=== PATIENT | female | born 1955 | race Caucasian/White ===

== ENCOUNTER 2017-12-13 11:05 | Emergency (ER) | payer MEDICAID, SELFPAY ==
[2017-12-13 11:07] VITALS: BP 135/70; PULSE 74; RESP 16; TEMP 36.5; O2SAT 98
--- NOTE | 2017-12-13 11:11 | HMH.EDBACK ---
ED Disposition Clinical Impression: Sacro-iliac pain, Sciatica Disposition: Home, Self-Care Condition on Discharge: Fair Additional Instructions: 1- rest. 2- robaxin. 3- warm compresses. 4- see pcp for an MRI in AM. 5- stop smoking. 6- return for any new sx. Prescriptions: Methocarbamol [Robaxin 500mg Tab] 500 mg PO Q8HP PRN #30 tab PRN Reason: Moderate Pain - Critical Care Critical Care Time: No Attestation: On , the high probability of a clinically significant, sudden or life threatening deterioration of the following system(s) required my full and direct attention, intervention and personal management. The time I documented below is in addition to time spent performing reported procedures but includes the following listed in this critical care notation. Medical Decision Making - Medical Records Medical records reviewed: Yes: I reviewed the patient's medical records. Vital Signs: 12/13/17 11:07 Temperature 97.7 F Temperature Source Oral Pulse Rate [Right Radial] 74 Respiratory Rate 16 Blood Pressure [Right Arm] 135/70 Blood Pressure Mean [Right Arm] 91 Blood Pressure Source [Right Arm] Automatic Cuff Blood Pressure Position [Right Arm] Sitting 02 Sat by Pulse Oximetry 98 Oxygen Delivery Method Room Air Orders (Tests/Meds): ED MEDICATIONS Discontinued Medications Generic Name Dose Route Start Last Admin Trade Name Freq PRN Reason Stop Dose Admin Acetaminophen 650 mg 12/13/17 11:22 12/13/17 11:26 Acetaminophen 325mg Tab PO 12/13/17 11:23 650 mg ONCE ONE Administration ORDERS Category Date Time Status XR femur RT 2V Stat Exams 12/13/17 12:06 Ordered XR hip RT 2-3V w/pelvis Stat Exams 12/13/17 11:15 Taken - Radiology Data #1 Image(s): Hip, Femur Image Reviewed: Yes I reviewed the patient's radiology image Preliminary Findings: Normal/NAD - Deepak Inquiry Pt receiving controlled substance: No Deepak was queried for this patient: No Medical Decision Making Narrative: The patient initially refused pain injection requested Tylenol. Upon the family arrival they informed me that she has become been experiencing lower back pain radiating to the right lower extremity for some time and she is using Aleve. Reexamine the patient and she had no sacral tenderness no femur tenderness and negative pain with passive range of motion. She only starts hurting when she puts weight on the right leg. X-rays had no abnormal bony structure. Advised the family for rest no weightbearing on follow-up with a manipulative chiropractor for sacroiliac joint to justment. If not better she will need to obtain an as an MRI of the lumbar spine to rule out sciatica by her primary care physician. [facility] History I have reviewed the patient's past medical history: Yes ROS Obtained: Yes All systems reviewed & no additional complaints Physical Exam - General General appearance: alert, in no apparent distress - Head Head exam: atraumatic, normocephalic, normal inspection - Eye Eye exam: Present: normal appearance, PERRL, EOMI - ENT ENT exam: Present: normal exam, normal oropharynx, mucous membranes moist, TM's normal bilaterally, normal external ear exam - Neck Neck exam: Present: normal inspection, full ROM, trachea midline. Absent: meningismus, lymphadenopathy - Chest Chest inspection: Present: normal inspection, symmetric chest wall rise. Absent: tenderness - Respiratory Respiratory exam: Present: normal lung sounds bilaterally. Absent: respiratory distress - Cardiovascular Cardiovascular exam: Present: regular rate, normal rhythm. Absent: JVD - Abdominal Exam Abdominal exam: Present: soft, normal bowel sounds. Absent: distention, tenderness, guarding - Extremities Exam Extremities exam: Present: normal inspection, full ROM, normal capillary refill. Absent: calf tenderness - Back Exam Back exam: Present: normal inspection, tenderness, other (S
--- NOTE | 2017-12-13 11:14 | ED_ITS ---
ED Disposition Clinical Impression: Sacro-iliac pain, Sciatica Disposition: Home, Self-Care Condition on Discharge: Fair Additional Instructions: 1- rest. 2- robaxin. 3- warm compresses. 4- see pcp for an MRI in AM. 5- stop smoking. 6- return for any new sx. Prescriptions: Methocarbamol [Robaxin 500mg Tab] 500 mg PO Q8HP PRN #30 tab PRN Reason: Moderate Pain - Critical Care Critical Care Time: No Attestation: On , the high probability of a clinically significant, sudden or life threatening deterioration of the following system(s) required my full and direct attention, intervention and personal management. The time I documented below is in addition to time spent performing reported procedures but includes the following listed in this critical care notation. Medical Decision Making - Medical Records Medical records reviewed: Yes: I reviewed the patient's medical records. Vital Signs: 12/13/17 11:07 Temperature 97.7 F Temperature Source Oral Pulse Rate [Right Radial] 74 Respiratory Rate 16 Blood Pressure [Right Arm] 135/70 Blood Pressure Mean [Right Arm] 91 Blood Pressure Source [Right Arm] Automatic Cuff Blood Pressure Position [Right Arm] Sitting 02 Sat by Pulse Oximetry 98 Oxygen Delivery Method Room Air Orders (Tests/Meds): ED MEDICATIONS Discontinued Medications Generic Name Dose Route Start Last Admin Trade Name Freq PRN Reason Stop Dose Admin Acetaminophen 650 mg 12/13/17 11:22 12/13/17 11:26 Acetaminophen 325mg Tab PO 12/13/17 11:23 650 mg ONCE ONE Administration ORDERS Category Date Time Status XR femur RT 2V Stat Exams 12/13/17 12:06 Ordered XR hip RT 2-3V w/pelvis Stat Exams 12/13/17 11:15 Taken - Radiology Data #1 Image(s): Hip, Femur Image Reviewed: Yes I reviewed the patient's radiology image Preliminary Findings: Normal/NAD - Deepak Inquiry Pt receiving controlled substance: No Deepak was queried for this patient: No Medical Decision Making Narrative: The patient initially refused pain injection requested Tylenol. Upon the family arrival they informed me that she has become been experiencing lower back pain radiating to the right lower extremity for some time and she is using Aleve. Reexamine the patient and she had no sacral tenderness no femur tenderness and negative pain with passive range of motion. She only starts hurting when she puts weight on the right leg. X-rays had no abnormal bony structure. Advised the family for rest no weightbearing on follow-up with a manipulative chiropractor for sacroiliac joint to justment. If not better she will need to obtain an as an MRI of the lumbar spine to rule out sciatica by her primary care physician. [facility] History I have reviewed the patient's past medical history: Yes ROS Obtained: Yes All systems reviewed & no additional complaints Physical Exam - General General appearance: alert, in no apparent distress - Head Head exam: atraumatic, normocephalic, normal inspection - Eye Eye exam: Present: normal appearance, PERRL, EOMI - ENT ENT exam: Present: normal exam, normal oropharynx, mucous membranes moist, TM's normal bilaterally, normal external ear exam - Neck Neck exam: Present: normal inspection, full ROM, trache
--- NOTE | 2017-12-13 11:15 | XR_ITS ---
XR hip RT 2-3V w/pelvis Ordering Physician: Ron Solomon MD Patient Age: 62 years: Female HISTORY: ITS.REASON: Right hip pain shoots down right leg TECHNIQUE: Right hip AP and frog-leg view along with AP pelvis COMPARISON : No previous studies FINDINGS Right hip, intact with no fracture nor dislocation evident right femoral head with normal contour right femoral neck appears intact.. The superior hip joint spaces fairly well maintained. Only scant hypertrophic ridging at superior lip of acetabulum which may reflect early degenerative change. Osseous pelvis appears intact. Sacrum appears intact superior and inferior ramus appear intact. Mild atherosclerotic calcifications throughout pelvic vessels. . Moderate stool:. Mild degenerative disc space narrowing to the left at L4/5 noted with facet arthropathy likely lower L-spine. . If significant pain or pelvis pain persist consider CT follow-up. IMPRESSION: . Right hip appears intact with no acute fracture. Perhaps scant minor degenerative changes at hips. . Mild demineralization.
--- NOTE | 2017-12-13 12:06 | XR_ITS ---
XR femur RT 2V Ordering Physician: Ron Solomon MD Patient Age: 62 years: Female HISTORY: ITS.REASON: pain TECHNIQUE: AP and lateral right femur COMPARISON :Right hip from today FINDINGS The right femur is intact with no fracture evident. Right hip included appears intact on these right femur views as well . Right knee is included with mild narrowing lateral compartment more so than medial compartment. . Question some mild focal soft tissue edema lateral and anterior to the mid right femur near the junction of proximal and middle third. This is inconsistently visualized and could be due to overlying clothing or artifact. IMPRESSION right femur intact no fracture evident.
[2017-12-13 13:17] VITALS: BP 144/94; PULSE 76; RESP 20; TEMP 37.1; O2SAT 98
== END 2017-12-13 13:19 | disposition home or self-care (01) ==
PROVIDERS: Emergency Provider Emergency Medicine; PCP Nurse Practitioner
DX: M54.31 Sciatica, right side (principal); I10 Essential (primary) hypertension; E78.5 Hyperlipidemia, unspecified; X50.1XXA Overexertion from prolonged static or awkward postures, initial encounter; Y92.013 Bedroom of single-family (private) house as the place of occurrence of the external cause
CPT/HCPCS: 73502; 73552; 96372; 99282

== ENCOUNTER → 2017-12-15 13:33 | Outpatient (CLI) | payer MEDICAID, SELFPAY ==
--- NOTE | 2017-12-15 13:51 | NVE_ITS ---
Venous Exam Indications: 729.5 Pain in limb. IMPRESSIONS 1. There is no evidence of significant Reflux. 2. No evidence of deep or superficial vein thrombosis involving the right lower extremity Right lower extremity venous duplex evaluation. Doppler flow study including spectral analysis, color and peterson scale imaging. Location: Vascular laboratory. Patient status: Outpatient. CRITICAL FINDINGS - Reported to: david - Read back and verified. - 12/15/17 - 1515 - None Incidental findings: Possible Muscle strain, tear, is noted incidentallyinthe right calf Tables: Venous flow and imaging: + +-------+ + Location Overall Flow properties + +-------+ + Right common femoral Patent Normal phasicity; spontaneous; normal augmentation; compressible + +-------+ + Right saphenofemoral junction Patent Compressible + +-------+ + Right profunda femoral Patent Compressible + +-------+ + Right femoral Patent Normal phasicity; spontaneous; normal augmentation; compressible + +-------+ + Right greater saphenous Patent Normal phasicity; spontaneous; normal augmentation; compressible + +-------+ + Right popliteal Patent Normal phasicity; spontaneous; normal augmentation; compressible + +-------+ + Right posterior tibial Patent Compressible + +-------+ + Right peroneal Patent Compressible + +-------+ + Right gastrocnemius Patent Compressible + +-------+ + Right soleal Patent Compressible + +-------+ + (Report amended ) Electronically signed by: Abelardo Qureshi [id number]
== END ==
PROVIDERS: PCP Nurse Practitioner; Visit Provider Nurse Practitioner
DX: M79.604 Pain in right leg (principal)
CPT/HCPCS: 93971

== ENCOUNTER → 2017-12-17 10:05 | Outpatient (CLI) | payer MEDICAID, SELFPAY ==
--- NOTE | 2017-12-17 10:10 | MR_ITS ---
MR hip RT wo con HISTORY: Right hip pain with right hip and groin pain ITS.REASON: RIGHT HIP PAIN ORDERING PHYSICIAN: Jeane Cooper PATIENT AGE: 62 years COMPARISON: Radiograph 12/13/2017 TECHNIQUE: Multiplanar multiecho sequences are performed without contrast FINDINGS: No fracture or dislocation is evident. There is no evidence of avascular necrosis of the femoral head. There are minor osteoarthritic changes with slight decrease in the joint space. There are subcortical cystic changes of the acetabulum anteriorly with mild bone marrow edema of the anterior aspect of the acetabulum which may be related to the mild osteoarthritis. No masses or muscular abnormalities apparent. IMPRESSION: Minor osteoarthritic changes of the right hip. There are small subcortical cysts along the anterior lip of the acetabulum with a small amount of bone marrow edema in this region suggesting mild inflammatory change
== END ==
PROVIDERS: PCP Nurse Practitioner; Visit Provider Nurse Practitioner
DX: M25.551 Pain in right hip (principal)
CPT/HCPCS: 73721

== ENCOUNTER 2018-01-19 09:30 | Outpatient (RCR) | payer MEDICAID, SELFPAY ==
--- NOTE | 2017-12-29 08:44 | HMH.PTOPEV ---
Rehab Outpatient Evaluation Rehab OP Evaluation Start: 12/29/17 08:04 Freq: Status: Active Protocol: Document 12/29/17 08:32 PHOANNA (Rec: 12/29/17 08:44 PHORNE [id number]) Electronically Signed By Singh Altamirano, PT 12/29/17 08:32 Outpatient Therapy Subjective History Subjective History Pt presents with c/o pain in right anterior thigh and posterior hip x ~ 2 wks . Pt states, I was moving a bed and I got a sharp pain and I couldn't move and I had to go to the ER. Pt had X-ray and MRI performed which was negative for fx or soft tissue injury and showed only minimal right hip OA. Pt. has PMH of HTN and HL. Chief Complaint Pain Symptom Type Ache Symptoms Relieved By Rest/Positioning Symptoms Aggravated By Sitting Prior Functional Limitations None Current Functional Limitations Walking Symptom Description Activity Dependent Level of pain today (0-10) 0 Pain scale - at its worst (0-10) 10 Lumbopelvic Eval Gait Observation General Gait Pattern Observation No Deviations/Normal Palapation tenderness right buttock tenderness Yes: min Range of Motion Lumbar Spine Active Flexion Range of 0-70 Motion (degrees) Lumbar Spine Active Extension Range of 0-25 Motion (degrees) Left Lumbar Spine Lateral Flexion Active 0-25 Range of Motion (degrees) Right Lumbar Spine Lateral Flexion 0-25 Active Range of Motion (degrees) Manual Muscle Test Bilateral Knee Extension Strength Grade 5 Normal Knee Flexion Strength Grade 5 Normal Hip Flexion Strength Grade 5 Normal Hip Abduction Strength Grade 5 Normal Hip Adduction Strength Grade 5 Normal Hip External Rotation Strength Grade 5 Normal Hip Internal Rotation Strength Grade 5 Normal Hip Extension Strength Grade 5 Normal Gluteus Cody Strength Grade 5 Normal Extensor Hallucis Longus Strength Grade 5 Normal Ankle Dorsiflexion Strength Grade 5 Normal Gastronemius/Soleus Strength Grade 5 Normal DTR Rt Patellar 2+ Lt Patellar 2+ Rt Gastroc/Soleus 2+ Lt Gastroc/Soleus 2+ Special Tests Forward Bending Test- Sitting Negative Left Negative Right Hip Scouring (Quadrant) Test Negative Left Negative Right Hip Vinay (DEREJE) Test Negative Left Negative Righ
== END 2018-01-19 09:31 | disposition home or self-care (01) ==
LOC: PT 09:30
PROVIDERS: PCP Nurse Practitioner; Visit Provider Nurse Practitioner
DX: M19.90 Unspecified osteoarthritis, unspecified site (principal)
CPT/HCPCS: 97010; 97014; 97110; G0283

== ENCOUNTER 2021-09-29 10:43 | Emergency (ER) | payer MEDICARE, MEDICAID, SELFPAY ==
[2021-09-29 11:12] VITALS: BP 139/71; PULSE 110; RESP 18; TEMP 37; O2SAT 95; BMI 20.8
--- NOTE | 2021-09-29 11:40 | HMH.EDUTC ---
[facility] [place] Disposition Clinical Impression: Bronchitis Sinusitis Qualifiers: Sinusitis location: unspecified location Chronicity: acute Recurrence: non-recurrent Qualified Code(s): J01.90 - Acute sinusitis, unspecified Otitis media Qualifiers: Otitis media type: suppurative Chronicity: acute Laterality: bilateral Recurrence: non-recurrent Spontaneous tympanic membrane rupture: without spontaneous rupture Qualified Code(s): H66.003 - Acute suppurative otitis media without spontaneous rupture of ear drum, bilateral Disposition: Home, Self-Care Condition on Discharge: Good Instructions: Middle Ear Infection, DI for Sinusitis, DI for Acute Bronchitis, How to Quit Tobacco Products Additional Instructions: Drink plenty of fluids. Take tylenol or ibuprofen for pain or fever. Take the medications as directed. Follow up with your regular doctor. GO TO THE ER FOR ANY WORSENING SYMPTOMS Quarantine until you know the results of your covid-19 test. If it is positive, the health department should call you and give you further instructions about your length of Quarantine and other things. Notify your school or workplace of your results and follow their instructions regarding return to work/school. Don't start the oral steroids until tomorrow, since you had the shot here today. The cough medication (promethazine dm) will make you drowsy, so don't drive or operate heavy machinery after taking it. I encourage you to get vaccinated for Covid-19 once you get better. Prescriptions: Promethazine/Dextromethorphan [Promethazine-Dm Syrup] 5 ml PO Q6HP PRN #240 ml PRN Reason: Cough Transmission Status: Received by [id number] Amoxicillin/Potassium Clav [Augmentin 500mg tab] 500 mg PO TID #30 tab Transmission Status: Received by [id number] methylPREDNISolone [Medrol] 4 mg PO DIRECTED 6 Days #21 packet Transmission Status: Received by [facility] guaiFENesin [Mucinex 600mg tablet] 1 - 2 tab PO BIDP PRN #30 tab PRN Reason: Congestion Transmission Status: Received by [id number] Referrals: Orestes Murry MD [Primary Care Provider] - Time of Disposition: 12:42 Medical Decision Making - Medical Records Medical records reviewed: No: I reviewed the patient's medical records. - Deepak Inquiry Pt receiving controlled substance: No Vital Signs: 09/29/21 11:12 09/29/21 12:46 Temperature 98.6 F 98.6 F Temperature Source Oral Pulse Rate 110 H Pulse Rate [Left] 110 H Respiratory Rate 18 18 Blood Pressure 139/71 Blood Pressure [Right Arm] 139/71 Blood Pressure Mean [Right Arm] 93 02 Sat by Pulse Oximetry 95 - Lab Data Lab results reviewed: Yes: I reviewed the patient's lab results. Orders (Tests/Meds): ED MEDICATIONS Discontinued Medications Generic Name Dose Route Start Last Admin Trade Name Seamus PRN Reason Stop Dose Admin Ceftriaxone Sodium 1 gm 09/29/21 11:57 09/29/21 12:14 Ceftriaxone 1gm Vial IM 09/29/21 11:58 1 gm ONCE ONE Administration Lidocaine HCl 0 ml 09/29/21 11:57 09/29/21 12:14 Lidocaine 1% 5ml Pf Vial IM 09/29/21 11:58 Not Given ONCE ONE Lidocaine HCl 2 ml 09/29/21 12:15 09/29/21 12:15 Lidocaine 1% Pf 2ml Ampule IM 09/29/21 12:16 2 ml ONCE ONE Administration Methylprednisolone Sodium Succinate 125 mg 09/29/21 11:57 09/29/21 12:13 Methylprednisolone Sod Succ 125mg Vial IM 09/29/21 11:58 125 mg ONCE ONE Administration [facility] HPI - General Stated complaint: cough, congestion, rt side pain, ear pain Time Seen by Provider: 09/29/21 11:41 Mode of Arrival: Ambulatory Source of Information: Patient Limitations: No Limitations Description of Symptoms (Recalled from Triage Doc. by RN): pt c/o a R ear ache, cough, nasal drainage, and sorenes under her R breast (pt believes she pulled a muscle.) HEENT Symptoms (Recalled from RN notes): Yes (R earache and nasal drainage) Resp Symptoms (Re
--- NOTE | 2021-09-29 11:56 | XR_ITS ---
PROCEDURE INFORMATION: Exam: XR Chest Exam date and time: 09/29/2021 11:56 AM Age: 65 years old Clinical indication: Shortness of breath; Additional info: Cough, congestion TECHNIQUE: Imaging protocol: XR of the chest. Views: 2 views. COMPARISON: No relevant prior studies available. FINDINGS: Lungs: Background emphysema. No focal airspace disease. Pleural spaces: Unremarkable. No pleural effusion. No pneumothorax. Heart/Mediastinum: Cardiomediastinal silhouette is within normal limits. Bones/joints: Unremarkable. IMPRESSION: No acute cardiopulmonary abnormality.
[2021-09-29 12:46] VITALS: BP 139/71; PULSE 110; RESP 18; TEMP 37
== END 2021-09-29 12:52 | disposition home or self-care (01) ==
PROVIDERS: Emergency Provider Nurse Practitioner Family; PCP Family Medicine
DX: U07.1 COVID-19 (principal); J20.9 Acute bronchitis, unspecified; J01.90 Acute sinusitis, unspecified
CPT/HCPCS: 71046; 96372; 99202; C9803; G0463; U0003; U0005

== ENCOUNTER 2023-09-08 11:27 | Emergency (ER) | payer MEDICARE, MEDICAID, OTHER, SELFPAY ==
[2023-09-08 11:28] VITALS: BP 187/101; PULSE 97; RESP 18; TEMP 36.5; O2SAT 99; BMI 21.5
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
--- NOTE | 2023-09-08 13:25 | PC.NURSE ---
dr. villatoro spoke with ckr at this time
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
--- NOTE | 2023-09-08 13:51 | PC.NURSE ---
pt accepted to ER per Dr. Gillespie
--- NOTE | 2023-09-08 13:53 | PC.NURSE ---
ems called for transport
--- NOTE | 2023-09-08 13:56 | PC.NURSE ---
report called to er charge at [facility]
[2023-09-08 14:00] VITALS: BP 176/93; PULSE 75; O2SAT 97
--- NOTE | 2023-09-08 14:02 | PC.NURSE ---
transfer records signed by MD and pt. Copy placed in transfer packet
[2023-09-08 14:06] LABS: INR 1.01 (0.9-1.1); Prothrombin Time 10.9 seconds (10.1-12.5)
[2023-09-08 14:07] LABS: Alanine Aminotransferase 16 U/L (12-78); Albumin Level 4.3 g/dl (3.5-5.0); Albumin/Globulin Ratio 1.2 (1.1-1.8); Alkaline Phosphatase 106 U/L (38-126); Aspartate Amino Transferase 25 U/L (14-36); Bilirubin,Total 0.4 mg/dl (0.2-1.3); Blood Urea Nitrogen 18 mg/dl (7-17); Calcium 9.2 mg/dl (8.4-10.2); Carbon Dioxide 27 mmol/L (22.0-30.0); Chloride 106 mmol/L (98-107); Creatinine Clearance Estimated 43 mL/min (50-200); Estimated Glomerular Filt Rate 99 ml/min (>60); GFR (African American) 120 ML/MIN (>60); Globulin 3.5 g/dL (1.3-3.2); Glucose 102 mg/dl (74-100); Sodium 139 mmol/L (136-145); Total Protein,Serum 7.8 g/dl (6.3-8.2)
[2023-09-08 14:21] LABS: Basophils # 0.1 K/mm3 (0-0.2); Eosinophils # 0.2 K/mm3 (0.0-0.4); Eosinophils % 2.2 % (0.1-12.0); Hematocrit 43.3 % (37.0-47.0); Hemoglobin 14.8 g/dL (12.2-16.2); Lymphocytes # 2.9 K/mm3 (0.7-4.5); Lymphocytes % 39.2 % (10-50); Mean Corpuscular HGB Conc 34.1 g/dL (31.8-35.4); Mean Corpuscular Hemoglobin 31.9 pg (27.0-31.2); Mean Corpuscular Volume 93.5 fl (81-99); Monocytes # 0.4 K/mm3 (0.1-1.0); Monocytes % 5.5 % (1.7-9.3); Neutrophils # 3.9 K/mm3 (1.8-7.8); Neutrophils % 52.2 % (37.0-80.0); Platelet Count 234 K/mm3 (142-424); Red Blood Count 4.63 M/mm3 (4.20-5.40); Red Cell Distribution Width 13.5 % (11.5-17.5); White Blood Count 7.5 K/mm3 (4.8-10.8)
[2023-09-08 14:45] VITALS: BP 160/91; PULSE 80; RESP 18; TEMP 36.7; O2SAT 97
== END 2023-09-08 14:30 | disposition other institution (70) ==
PROVIDERS: Emergency Provider Emergency Medicine; PCP Family Medicine
DX: S06.5X0A Traumatic subdural hemorrhage without loss of consciousness, initial encounter; F17.210 Nicotine dependence, cigarettes, uncomplicated; V49.10XA Passenger injured in collision with unspecified motor vehicles in nontraffic accident, initial encounter
CPT/HCPCS: 70450; 72125; 80053; 85025; 85610; 99285

== ENCOUNTER 2025-03-08 14:10 | Outpatient (CLI) | payer MEDICARE, MEDICAID, SELFPAY ==
--- NOTE | 2025-03-08 14:15 | XR_ITS ---
FINAL REPORT CLINICAL HISTORY: PAIN c/o pain 2-3 weeks COMPARISON: None FINDINGS: LEFT FOOT Three views of the left foot demonstrate no acute fracture or dislocation. The visualized joint spaces are normally aligned. The soft tissues are unremarkable. IMPRESSION: No acute bony abnormality. Reviewed, Interpreted and Dictated by Andi Varela MD Transcribed by Blanca Glaser Authenticated and [facility]
== END 2025-03-08 23:59 | disposition home or self-care (01) ==
LOC: RAD 14:12
PROVIDERS: PCP Nurse Practitioner; Visit Provider Nurse Practitioner
DX: M79.673 Pain in unspecified foot (principal)
CPT/HCPCS: 73630